=== PATIENT | male | born 1935 ===

== ENCOUNTER → 2017-03-31 | Outpatient (CLI) | payer MEDICARE, OTHER ==
[~2017-03-31] VITALS: Ht 180.3 cm; Wt 72.5 kg
[~2017-03-31] MED LIST: FLUT16H NASAL; FLUT1BLS PO; FOSI1TAB PO; FURO20 PO; LORA10TA7 PO; OMEP20 PO; PRAM0.122 PO; TIOT185 IH
[2017-03-31 12:34] VITALS: BP 142/67
== END | disposition home or self-care (01) ==
LOC: SRCNTR 12:16
PROVIDERS: ATTEND Internal Medicine
DX: J44.9 Chronic obstructive pulmonary disease, unspecified (principal); I50.9 Heart failure, unspecified; J32.9 Chronic sinusitis, unspecified; F17.200 Nicotine dependence, unspecified, uncomplicated; Z95.0 Presence of cardiac pacemaker
CPT/HCPCS: G0463